=== PATIENT | female | born 1950 | race African-American/Black ===

== ENCOUNTER → 2019-01-07 | Outpatient (CLI) | payer BC, OTHER ==
--- NOTE | 2019-01-07 11:01 | 2DMMODE ---
[facility] [place] [place] [address] 2 D/M-MODE ECHOCARDIOGRAM Name: LAURIETORI CORTES Room #: REG CL [facility]#: [id number] ������������� Admission: 01/07/19 ������������� Attend Phys: Wilfredo Cortes MD Discharge: ��� ������������� ��� Date of : 52 Date of Service: 01/07/19 1101 �� Report #: [id number] �������� ��������������������������������������������[id number] THIS REPORT FOR: //name// APPROVED REPORT Study performed: 01/07/2019 10:18:24 EXAM: Comprehensive 2D, Doppler, and color-flow Echocardiogram Patient Location: Out-Patient Status: routine BSA: 1.88 HR: 62 bpm BP: 120/64 mmHg Rhythm: NSR Other Information Study Quality: Good Indications CAD. Hx: TN, stent, ISCM, HTN. 2D Dimensions RVDd: 36.71 mm IVSd: 9.84 (7-11mm) LVOT Diam: 20.26 (18-24mm) LVDd: 50.60 mm PWd: 8.89 (7-11mm) Ascending Ao: 31.70 (22-36mm) LVDs: 33.59 (25-40mm) Aortic Root: 34.07 mm Volumes Left Atrial Volume (Systole) Single Plane 4CH: 56.08 mL Single Plane 2CH: 48.52 mL LA ESV Index: 29.00 mL/m2 Aortic Valve AoV Peak Navdeep.: 1.42 m/s AO Peak Gr.: 8.08 mmHg LVOT Max P.15 mmHg LVOT Max V: 1.24 m/s SHAILESH Vmax: 2.81 cm2 Mitral Valve E/A Ratio: 0.6 MV Decel. Time: 275.01 ms MV E Max Navdeep.: 0.72 m/s [facility] [address] [place] [address] 2 D/M-MODE ECHOCARDIOGRAM Name: TORI SULLIVAN Room #: REG [facility]#: [id number] ������������� Admission: 01/07/19 ������������� Attend Phys: Wilfredo Cortes MD Discharge: ��� ������������� ��� Date of : 52 Date of Service: 01/07/19 1101 �� Report #: [id number] �������� ��������������������������������������������[id number] MV A Navdeep.: 1.15 m/s MV PHT: 79.75 ms IVRT: 83.04 ms Pulmonary Valve PV Peak Navdeep.: 0.76 m/s PV Peak Gr.: 2.30 mmHg Pulmonary Vein P Vein S: 0.51 m/s P Vein D: 0.33 m/s P Vein S/D Ratio: 1.55 Tricuspid Valve RAP Estimate: 5.00 mmHg Left Ventricle The left ventricle is normal size. Regional wall motion abnormalities are noted. There is normal left ventricular wall thickness. Left ventricular systolic function is mildly decreased. LVEF is 45-50%. Mild diastolic dysfunction is present (impaired relaxation pattern). Right Ventricle The right ventricle is normal size. The right ventricular systolic function is normal. Atria Left atrium is mildly dilated. The right atrium size is normal. Aortic Valve Aortic valve is mildly calcified. Mild aortic regurgitation. There is no aortic valvular stenosis. Mitral Valve The mitral valve is normal in structure. Trace mitral regurgitation. Tricuspid Valve The tricuspid valve is normal in structure. Trace tricuspid regurgitation. Unable to assess PA pressure. Pulmonic Valve The pulmonary valve is normal in structure. Mild pulmonic regurgitation. [facility] [email or web address] [address] 2 D/M-MODE ECHOCARDIOGRAM Name: LAURIETORI SOPHIA Room #: REG [facility].#: [id number] ������������� Admission: 01/07/19 ������������� Attend Phys: Wilfredo Cortes MD Discharge: ��� ������������� ��� Date of : 52 Date of Service: 01/07/19 1101 �� Report #: [id number] �������� ��������������������������������������������[id number] Great Vessels The aortic root is normal in size. The ascending aorta is normal in size. IVC is normal in size and collapses >50% with inspiration. Pericardium There is no pericardial effusion. <Conclusion> The left ventricle is normal size. There is normal left ventricular wall thickness. Left ventricular systolic function is mildly decreased. LVEF is 45-50%. Mild diastolic dysfunction is present (impaired relaxation pattern). The right ventricle is normal size. Left atrium is mildly dilated. Mild aortic regurgitation. Trace mitral regurgitation. Trace tricuspid regurgitation. ��������������������������������������������� <ELECTRONICALLY SIGNED> ���������������������������������������� By: Wilfredo Cortes MD ��������������������������������������������� 01/07/191100 00 00 Wilfredo Cortes MD /INF
== END ==
LOC: CV 08:07
DX: I37.1 Nonrheumatic pulmonary valve insufficiency (principal); I35.1 Nonrheumatic aortic (valve) insufficiency; I35.8 Other nonrheumatic aortic valve disorders; I25.10 Atherosclerotic heart disease of native coronary artery without angina pectoris; I10 Essential (primary) hypertension

== ENCOUNTER 2019-08-20 12:59 | Emergency (ER) | payer BC ==
[~2019-08-20] VITALS: Ht 160 cm; Wt 86.2 kg
[2019-08-20] MEDS ORDERED: NORCO 5-325 TA1 EAC1 PO (14:41)
[2019-08-20 15:03] VITALS: BP 139/76
== END 2019-08-20 15:03 | disposition home or self-care (01) ==
LOC: ER 12:59
DX: S42.291A Other displaced fracture of upper end of right humerus, initial encounter for closed fracture (principal); I10 Essential (primary) hypertension; F17.210 Nicotine dependence, cigarettes, uncomplicated; W18.39XA Other fall on same level, initial encounter; Y92.89 Other specified places as the place of occurrence of the external cause; Y93.89 Activity, other specified; Y99.8 Other external cause status

== ENCOUNTER → 2021-06-13 | Outpatient (CLI) | payer BC ==
[~2021-06-13] MED LIST: NORCO 5-325 TA1 EAC1 PO
== END ==
LOC: SJCVCIMAG 07:08
PROVIDERS: ATTEND Internal Medicine Cardiovascular Disease
DX: I25.5 Ischemic cardiomyopathy (principal); I10 Essential (primary) hypertension; E78.5 Hyperlipidemia, unspecified; I35.8 Other nonrheumatic aortic valve disorders; I25.10 Atherosclerotic heart disease of native coronary artery without angina pectoris; I25.2 Old myocardial infarction; F17.200 Nicotine dependence, unspecified, uncomplicated; Z95.5 Presence of coronary angioplasty implant and graft

== ENCOUNTER → 2021-12-19 | Outpatient (CLI) | payer BC | LOC: SJCVC 12:34 | PROVIDERS: ATTEND Internal Medicine Cardiovascular Disease | DX: I25.10 Atherosclerotic heart disease of native coronary artery without angina pectoris (principal); I12.9 Hypertensive chronic kidney disease with stage 1 through stage 4 chronic kidney disease, or unspecified chronic kidney disease; N18.9 Chronic kidney disease, unspecified; G45.9 Transient cerebral ischemic attack, unspecified; R60.9 Edema, unspecified; Z72.0 Tobacco use; I25.5 Ischemic cardiomyopathy; Z88.0 Allergy status to penicillin; Z88.8 Allergy status to other drugs, medicaments and biological substances; Z79.899 Other long term (current) drug therapy ==